=== PATIENT | female | born 1990 | race Caucasian/White ===

== ENCOUNTER 2016-12-04 13:57 | Emergency (ER) | payer OTHER ==
[2016-12-04] MEDS ORDERED: Rabies Immune Globulin 10 ML* 150 UNIT/ML VIAL IM ONE (14:44)
[2016-12-04] MEDS ORDERED: Rabies Immune Globulin 2 ML* 150 UNITS/ML VIAL IM ONE ×4 (14:44→14:46)
[2016-12-04] MEDS ORDERED: Rabies Vaccine, PCEC INJ* 1 ml IM ONE (14:45)
--- NOTE | 2016-12-04 15:59 | UC ---
Bite Injury/Animal HPI - HPI Summary HPI Summary: Patient presents to the with concern for rabies exposure. She states her family awoke to a bat in her room which eventually flew out the window and was not captured. She does not have any bites as far as she knows. No open lesions. She is 16 months [address] Antonio who states she is able to receive the vaccination. He has written a formal letter which the currently is in possession of. She called the [facility] this morning who advised prophylaxis and vaccine. She denies any symptoms, is otherwise healthy and takes no medications. - History of Current Complaint Chief Complaint: UCGeneralIllness Stated Complaint: RABIES EXPOSURE Time Seen by Provider: 12/04/16 14:03 Hx Obtained From: Patient Hx Last Menstrual Period: 08/15/16 ?: Yes Severity Currently: None Pain Intensity: 0 Pain Scale Used: 0-10 Numeric Associated Signs And Symptoms: Positive: Negative Animal Available for Observation: No Animal Control Notified: No - Risk Factors Infection/Sepsis Risk Factors: Negative - Allergies/Home Medications Allergies/Adverse Reactions: Allergies Allergy/AdvReac Type Severity Reaction Status Date / Time No Known Allergies Allergy Verified 12/04/16 14:13 Home Medications: Home Medications + Complete Multi 0.267 & 373 mg 1 tab PO DAILY 12/04/16 [History Confirmed 12/04/16] PMH/Surg Hx/FS Hx/Imm Hx Previously Healthy: Yes - Surgical History Surgical History: Yes Surgery Procedure, Year, and Place: wisdom teeth - Social History Occupation: Employed Full-time Lives: With Family Alcohol Use: None Substance Use Type: None Smoking Status (MU): Never Smoked Tobacco Have You Smoked in the Last Year: No Review of Systems Constitutional: Negative Skin: Negative Eyes: Negative Respiratory: Negative Cardiovascular: Negative Neurovascular: Negative Musculoskeletal: Negative Neurological: Negative All Other Systems Reviewed And Are Negative: Yes Physical Exam Triage Information Reviewed: Yes Appearance: Well-Appearing, Well-Nourished Vital Signs: Initial Vital Signs Temp 98.7 F 12/04/16 14:14 Pulse 102 12/04/16 14:14 Resp 20 12/04/16 14:14 Pulse Ox 100 12/04/16 14:14 Vital Signs Reviewed: Yes Eye Exam: Normal Eyes: Positive: Conjunctiva Clear Neck exam: Normal Neck: Positive: Supple, No Lymphadenopathy Respiratory Exam: Normal Respiratory: Positive: Chest non-tender Cardiovascular Exam: Normal Cardiovascular: Positive: RRR Musculoskeletal Exam: Normal Musculoskeletal: Positive: Strength Intact Neurological Exam: Normal Neurological: Positive: Alert Psychological: Positive: Normal Response To Family, Age Appropriate Behavior Skin Exam: Normal Bite Injury Course/Dx - Course Course Of Treatment: No known bite. Patient is 16 weeks . Note from OBGYN Dr. Antonio with patient clearing her and recommended she get the vaccine and HRIG. TC called and spoke with Heather Lopez who advised prophylaxis. Rabies vaccine 2.5 (rabavert) given IM in R deltoid. Tdap currenet and not given. HRIG advised d/t high risk animal (bat). No immunoglobulin given into wound d/t no known or visible bite. Patient denies any pain, symptoms or open wounds. Follow up given for days 3, 7, and 14 as followed by [facility] and [facility] protocols. Patient OK with discharge and will follow up accordingly. He will have follow ups at the [facility] as directed. Patient evaluated for rabies exposure. - Differential Dx/Diagnosis Differential Diagnosis/HQI/PQRI: Envenomation, Puncture, Rabies Exposure, Deep Space Infection Provider Diagnoses: Rabies exposure Discharge - Discharge Plan Condition: Stable Disposition: HOME Referrals: No Primary Care Phys,NOPCP [Medical Doctor] - Additional Instructions: Follow up on day 3, 7 and 14
== END 2016-12-04 16:06 | disposition home or self-care (01) ==
LOC: UCEAST 13:57
DX: Z20.3 Contact with and (suspected) exposure to rabies (principal)
CPT/HCPCS: 90375; 90471; 90675; 96372; 99211; G0463

== ENCOUNTER 2017-05-15 16:02 | Inpatient (IN) | payer OTHER ==
[2017-05-15 16:45] LABS: Hematocrit 35 % (35-47); Hemoglobin 12.4 g/dl (12.0-16.0); Mean Corpuscular HGB Conc 35 g/dl (31-36); Mean Corpuscular Hemoglobin 33 pg (27-31); Mean Corpuscular Volume 95 fL (80-97); Mean Platelet Volume 8 um3 (7.4-10.4); Platelet Count 196 10^3/ul (150-450); Red Blood Count 3.71 10^6/ul (4.0-5.4); Red Cell Distribution Width 13 % (10.5-15); White Blood Count 21.7 10^3/ul (3.5-10.8)
[2017-05-15] MEDS ORDERED: Oxytocin in LR* 20 UNITS/1,000 ML BAG IVPB ONE (17:49)
[2017-05-15 17:55] LABS: Monocytes % 4 % (0-13)
[2017-05-15] MEDS ORDERED: Glycerin ADULT SUPP PR PRN (18:05)
[2017-05-15] MEDS ORDERED: Dibucaine 1% 28.35 GM TUBE PR PRN (18:05)
[2017-05-15] MEDS ORDERED: Witch Hazel PAD* JAR TOPICAL PRN (18:05)
[2017-05-15] MEDS ORDERED: Ibuprofen TAB* 600 MG ONE (18:17)
[2017-05-15] MEDS ORDERED: Lidocaine 1% MPF* 2 ML VIAL ONE (18:43)
[2017-05-15] MEDS: Acetaminophen TAB* 325 MG PO PRN (20:15)
[2017-05-15] MEDS: Docusate CAP* 100 MG PO SCH (20:15)
[2017-05-15] MEDS: Simethicone TAB* 80 MG TAB.CHEW PO SCH (20:16)
[2017-05-16] MEDS: Ibuprofen TAB* 600 MG PO PRN ×3 (00:54→15:36)
[2017-05-16] MEDS: Acetaminophen TAB* 325 MG PO PRN ×3 (04:23→20:15)
[2017-05-16 06:37] LABS: ABS Basophils 0.1 10^3/ul (0-0.2); ABS Eosinophils 0.1 10^3/ul (0-0.6); ABS Lymphocytes 2.8 10^3/ul (1.0-4.8); ABS Monocytes 1.5 10^3/ul (0-0.8); ABS Nucleated RBC 0 10^3/ul; Eosinophil % 0.3 % (0-6); Hematocrit 32 % (35-47); Lymphocyte % 12.9 % (25-47); Mean Corpuscular HGB Conc 35 g/dl (31-36); Mean Corpuscular Hemoglobin 33 pg (27-31); Mean Corpuscular Volume 95 fL (80-97); Mean Platelet Volume 8 um3 (7.4-10.4); Nucleated Red Blood Cells % 0; Platelet Count 191 10^3/ul (150-450); Red Blood Count 3.31 10^6/ul (4.0-5.4); Red Cell Distribution Width 13 % (10.5-15); White Blood Count 21.4 10^3/ul (3.5-10.8)
[2017-05-16] MEDS: Docusate CAP* 100 MG PO SCH ×3 (08:09→20:15)
[2017-05-16] MEDS: Simethicone TAB* 80 MG TAB.CHEW PO SCH ×2 (10:08→14:54)
[2017-05-16] MEDS: Ferrous Gluconate TAB* 324 MG TAB PO SCH (10:08)
[2017-05-17] MEDS: Ibuprofen TAB* 600 MG PO PRN ×2 (00:35→08:03)
[2017-05-17] MEDS: Ferrous Gluconate TAB* 324 MG TAB PO SCH ×2 (04:11→08:06)
[2017-05-17] MEDS: Docusate CAP* 100 MG PO SCH (08:03)
[2017-05-17 11:09] VITALS: BP 108/70
== END 2017-05-17 13:40 | disposition home or self-care (01) | DRG 775 ==
LOC: MCHOBOUT 16:02 → MCHOB 16:35
PROVIDERS: ADMIT Midwife; ATTEND Midwife
PROC: 10E0XZZ Delivery of Products of Conception, External Approach (ICD-10-PCS; principal; 2017-05-15)
PROC: 10907ZC Drainage of Amniotic Fluid, Therapeutic from Products of Conception, Via Natural or Artificial Opening (ICD-10-PCS; 2017-05-15)
PROC: 4A1HXCZ Monitoring of Products of Conception, Cardiac Rate, External Approach (ICD-10-PCS; 2017-05-15)
PROC: 0HQ9XZZ Repair Perineum Skin, External Approach (ICD-10-PCS; 2017-05-15)
DX: O70.0 First degree perineal laceration during delivery (principal); Z37.0 Single live birth; Z3A.39 39 weeks gestation of pregnancy
CPT/HCPCS: 36415; 85025; 86850; 86900; 86901; A9270-GY